=== PATIENT | male | born 1985 | race African-American/Black ===

== ENCOUNTER 2019-08-28 11:58 | Emergency (ER) | payer BC ==
[~2019-08-28] VITALS: Ht 185.4 cm; Wt 109.3 kg
[2019-08-28 13:22] VITALS: BP 152/76; Ht 185.4 cm; Wt 109.3 kg
== END 2019-08-28 14:33 | disposition home or self-care (01) ==
LOC: ED 11:58
DX: J06.9 Acute upper respiratory infection, unspecified (principal)